=== PATIENT | female | born 1945 | race Caucasian/White ===

== ENCOUNTER 2017-01-22 09:06 | Day surgery (SDC) | payer BC, MEDICARE, OTHER ==
--- NOTE | 2017-01-06 11:11 | PAT Medication Instructions ---
Service Date Jan 06, 2017. Current Home Medication List Acetaminophen (Tylenol Arthritis Ext Rel), 650 MG PO PRN Aspirin (Aspirin Ec), 81 MG PO QPM Atorvastatin (Lipitor), 40 MG PO HS Bupropion (Wellbutrin-Xl), 300 MG PO QAM Calcium (Caltrate), 600 MG PO QAM Celecoxib (CeleBREX), 200 MG PO QPM Folic Acid (Folvite), 1 MG PO QAM Lisinopril (Zestril), 20 MG PO QAM Methotrexate (Methotrexate), 12.5 MG PO THURSDAY Pantoprazole (Protonix), 40 MG PO QAM Pregabalin (Lyrica), 75 MG PO QPM Sodium Fluoride (Dental) (Prevident [address]), 1 DOSE TOP QAM [Topical Cream], 1 DOSE TOP BID Medication Instructions For Your Scheduled Surgery - Check with surgeon/batch and furnace manager for instructions: Aspirin (Aspirin Ec), 81 MG PO QPM - Check with surgeon for instructions: Celecoxib (CeleBREX), 200 MG PO QPM - Check with surgeon/salt washer harvesting station for instructions: Methotrexate (Methotrexate), 12.5 MG PO THURSDAY - Hold the following medications 24 hours prior to surgery: [Topical Cream], 1 DOSE TOP BID Sodium Fluoride (Dental) (Prevident [address]), 1 DOSE TOP QAM - Hold the following medications the morning of surgery: Lisinopril (Zestril), 20 MG PO QAM Folic Acid (Folvite), 1 MG PO QAM Calcium (Caltrate), 600 MG PO QAM - Take the following medications the morning of surgery with a sip of water: Pantoprazole (Protonix), 40 MG PO QAM Bupropion (Wellbutrin-Xl), 300 MG PO QAM Acetaminophen (Tylenol Arthritis Ext Rel), 650 MG PO PRN (if needed) - Take the following medications as scheduled the night before surgery: Pregabalin (Lyrica), 75 MG PO QPM Atorvastatin (Lipitor), 40 MG PO HS Acetaminophen (Tylenol Arthritis Ext Rel), 650 MG PO PRN (if needed) If you have any questions please call us at [phone] or [phone] or [phone]
--- NOTE | 2017-01-06 11:46 | DIAGNOSTIC IMAGING REPORT ---
CERVICAL SPINE 2 OR 3 VIEWS CLINICAL HISTORY: 71 years-old Female presenting with PREOP, RHEUMATOID ARTHRITIS. TECHNIQUE: Lateral views of the cervical spine in neutral, flexion, and extension positioning were obtained. COMPARISON: None. FINDINGS: In neutral position, straightening of normal cervical lordosis noted. In addition, 6 mm of grade 2 anterolisthesis of C4 on C5. Extensive multilevel degenerative changes noted most prominently at C5-6 and C6-7. Normal predental interval. No prevertebral soft tissue swelling. On extension view, slight decrease in anterolisthesis of C4 on C5 without additional changes. No subluxation of the atlantoaxial articulation. On flexion, 6 mm of anterolisthesis of C4 on C5 noted. Again, no subluxation of the atlantoaxial articulation. Apparent obliquely oriented radiolucency across the C5 vertebral body is indeterminate and persists on all positions, possibly superimposed structures. IMPRESSION: 6 mm of grade 2 anterolisthesis of C4 on C5 without significant change on flexion and extension positioning. No subluxation of the atlantoaxial articulation. Apparent obliquely oriented radiolucency across the C5 vertebral body is indeterminate. This raises concern for a fracture, although without a given history of trauma, this diagnosis is doubtful. This may represent overlapping structures. If there is clinical concern, further evaluation with noncontrast CT of the cervical spine could be obtained. Electronically signed by: Freedom Agarwal M.D. 01/06/2017 11:44 AM Dictated Date/Time: 01/06/2017 11:40 AM
[2017-01-06 12:28] LABS: BASO % 0.1 %; BASO ABS # 0.01 K/uL (0-0.2); COMPLETE YES; EOS % 1.7 %; HEMATOCRIT 38.5 % (37-47); IG% 0.3 %; LYMPH % 33.9 %; LYMPH ABS # 2.36 K/uL (1.2-3.4); MEAN CELL VOLUME 91.2 fL (80-100); MEAN CORPUSCULAR HEMOGLOBIN 29.1 pg (25-34); MEAN CORPUSCULAR HGB CONC 31.9 g/dl (32-36); MEAN PLATELET VOLUME 10.4 fL (7.4-10.4); MONO % 9.9 %; NEUT % 54.1 %; PLATELET COUNT 284 K/uL (130-400); RED BLOOD COUNT 4.22 M/uL (4.2-5.4); WHITE BLOOD COUNT 6.97 K/uL (4.8-10.8)
[2017-01-06 12:39] LABS: BUN/CREATININE RATIO 25.2 (10-20); CALCIUM 9.4 mg/dl (8.5-10.1); CREATININE 0.63 mg/dl (0.60-1.20); POTASSIUM 4.8 mmol/L (3.5-5.1)
[2017-01-06 12:41] LABS: PARTIAL THROMBOPLASTIN RATIO 1.1; PROTHROMBIN TIME (PATIENT) 10.2 SECONDS (9.0-12.0)
--- NOTE | 2017-01-21 19:00 | HISTORY & PHYSICAL EXAMINATION ---
DATE OF ADMISSION: 01/22/2017 CHIEF COMPLAINT: Chronic right shoulder pain. HISTORY OF PRESENT ILLNESS: This is a 71-year-old female patient of Dr. Vanegas'mynor complaining of chronic right shoulder pain, longstanding, now progressively getting worse. The patient has failed conservative treatment, including a past rotator cuff repair which was failed. She now wishes to proceed with a right shoulder arthroscopic revision, rotator cuff repair with open Conexa grafting. PAST MEDICAL HISTORY: Hypertension, hypercholesterolemia, rheumatoid arthritis, osteoarthritis, acid reflux, hepatitis A, Glasgow's esophagitis. SOCIAL HISTORY: Nonsmoker, nondrinker. PAST SURGICAL HISTORY: Please see admission paperwork for that. REVIEW OF SYSTEMS: The patient complains of chronic right shoulder pain. Otherwise, denies any shortness of breath, chest pain, nausea, vomiting or any other joint complaints. FAMILY HISTORY: Noncontributory. MEDICATIONS: Include, Tylenol as needed, aspirin 81 mg daily, Lipitor 40 mg daily, Wellbutrin 300 mg daily, calcium 600 mg daily, Celebrex 200 mg daily, folic acid 1 mg daily, lisinopril 20 mg daily, methotrexate 12.5 mg p.o. Thursday, Protonix 40 mg daily, Lyrica 75 mg in the morning, sodium fluoride in the morning. ALLERGIES: Will be provided on admission, unknown right now. PHYSICAL EXAMINATION: GENERAL: Well-developed, well-nourished 71-year-old female, in no acute distress. She is alert and oriented x3 and pleasant. HEENT: Normocephalic, atraumatic. Extraocular motions are intact. Pupils are equal and reactive to light. HEART: Regular rate and rhythm, no murmurs appreciated. LUNGS: Clear. ABDOMEN: Soft, nontender, bowel sounds present. EXTREMITIES: Right shoulder reveals limited range of motion with 3/5 strength globally. She has pain with range of motion as well as crepitation. She has clicking and catching with passive range of motion. DIAGNOSES: Right shoulder failed rotator cuff repair. She has a history of hypertension, hypercholesterolemia, rheumatoid arthritis, osteoarthritis, acid reflux, hepatitis A, Glasgow esophagitis. PLAN: The patient was advised of her diagnosis. Indications, risks, benefits, and postop course have all been reviewed. The patient wishes to proceed with a right shoulder arthroscopic revision, rotator cuff repair with open Conexa grafting. Necessary consent forms, preoperative testing and clearances will be obtained.
[~2017-01-22] VITALS: Ht 160 cm; Wt 78.4 kg
[~2017-01-22 09:06] MED LIST: ACET1TAB84 PO; ASPI81TA28 PO; ATOR-24 PO; BUPRTAB51 PO; CALCTAB5 PO; CEFAZOLIN 1000MG/55 ML D5W IV SCH; CLB/200 PO; FOLI1TAB7 PO; LISI-725 PO; METH2.5T PO; PANT1TAB48 PO; PREG1CAP28 PO; ROPIVACAINE 0.5% 5 MG/ML 30 ML VIAL ONE; SODI1PST TOP; TOPICAL CREAM TOP
[2017-01-22 10:30] VITALS: BP 149/85; PULSE 69; TEMP 36.1; O2SAT 98; Ht 160 cm; Wt 78.4 kg
--- NOTE | 2017-01-22 10:35 | History & Physical Bridge Note ---
H&P Re-Evaluation Bridge Note: I have examined the patient, reviewed the History & Physical and in the interval since the performance of the History & Physical I have noted the following changes of clinical significance: connexa graft not available so human dermal skin graft would possibly be used instead.discussed with patient and consented today.
[2017-01-22] MEDS ORDERED: MIDAZOLAM HCL 1 MG/ML 2ML VIAL ONE (12:55)
[2017-01-22] MEDS ORDERED: NEOSTIGMINE METHYLSULFATE 5 MG/5 ML SYR ONE (12:56)
[2017-01-22] MEDS ORDERED: ONDANSETRON INJ 2 MG/ML 2 ML VIAL ONE (12:56)
[2017-01-22] MEDS ORDERED: GLYCOPYRROLATE INJ 0.2 MG/ML VIAL ONE (12:56)
[2017-01-22] MEDS ORDERED: DEXAMETHASONE SOD INJ 4 MG/ML VIAL ONE (12:56)
[2017-01-22] MEDS ORDERED: FENTANYL CITRATE INJ 50 MCG/1 ML 2 ML VIAL ONE (12:56)
[2017-01-22] MEDS ORDERED: ROCURONIUM BROMIDE 10 MG/ML 5 ML VIAL IV ONE (12:56)
[2017-01-22] MEDS ORDERED: PROPOFOL IV EMULSION 10 MG/ML 20 ML VIAL IV ONE (12:56)
[2017-01-22] MEDS ORDERED: LIDOCAINE HCL 2% 2 ML VIAL (20MG/ML) ONE (12:56)
[2017-01-22] MEDS ORDERED: ATROPINE SULFATE 0.1 MG/ML 5ML SYR IV PRN (13:15)
[2017-01-22] MEDS ORDERED: PHENYLEPHRINE 100MCG/ML 5ML SYR IV PRN (13:15)
[2017-01-22] MEDS ORDERED: EpHEDrine SULFATE INJ 50 MG/ML AMP IV PRN (13:15)
[2017-01-22] MEDS ORDERED: HYDROmorphone INJ 2 MG/ML SYR/VIAL IV PRN (13:15)
[2017-01-22] MEDS ORDERED: ONDANSETRON INJ 2 MG/ML 2 ML VIAL IV PRN ×2 (13:15→16:45)
[2017-01-22] MEDS ORDERED: EpINEphrine HCL INJ 1 MG/ML 5ML SYRINGE ONE (13:38)
[2017-01-22] MEDS ORDERED: RXC5 PO (16:32)
--- NOTE | 2017-01-22 16:33 | Discharge Instructions ---
Discharge Instructions Date of Service Jan 22, 2017. Visit Reason for Visit: Right Shoulder Chronic Rotator Cuff Tear Discharge Discharge Diagnosis / Problem: sp ARTHROSCOPIC ROTATOR CUFF REPAIR Discharge Goals Goal(s): Decrease discomfort, Improve function, Increase independence Activity Recommendations Activity Limitations: per Instructions/Follow-up section Anesthesia . Post Anesthesia Instructions: If you have had General Anesthesia or IV Sedation: * Do not drive today. * Resume driving when surgeon permits. * Do not make important decisions or sign legal documents today. * Call surgeon for: 1. Temperature elevations greater than 101 degrees F. 2. Uncontrollable pain. 3. Excessive bleeding. 4. Persistent nausea and vomiting. 5. Medication intolerance (nausea, vomiting or rash). * For nausea and vomiting use only clear liquids such as: tea, soda, bouillon until nausea subsides, then gradually increase diet as tolerated. * If you have any concerns or questions, call your surgeon's office. If physician is unavailable and it is an emergency, call 911 or go to the nearest emergency room. . Instructions / Follow-Up Instructions / Follow-Up U DISCHARGE INSTRUCTIONS: ROTATOR CUFF REPAIR SELF CARE INSTRUCTIONS A. You are permitted to loosen your sling/immobilizer to move your elbow, wrist , and hand to prevent stiffness. You should use your well arm (good arm) to assist the operated extremity when trying to raise the arm away from the body, hygiene purposes. Do NOT actively try to use/engage your shoulder muscles in operative arm at this time. You should NOT do overhead activity, lifting, or attempt to reach behind your back. B. You may/may not be instructed to start Physical Therapy upon discharge depending upon the size and difficulty of the repair. You will be provided a prescription for therapy with specific restrictions, if needed, at time of discharge. C. At 48 hours post-operatively, you may change your dressing. (Leave white steri-strips intact if present). Use band-aids and change daily. You are allowed to shower at this time and get the incision area wet, but DO NOT soak or submerge incision area in water. (No baths, swimming pools, hot tubs) D. Do NOT apply soap or any ointment/lotions directly over incision. E. You may use ice as needed to operative shoulder SPECIAL CARE INSTRUCTIONS: VERY IMPORTANT TO READ AND REVIEW A. There are a few signs you need to watch for after you are home. Call [facility] at [phone] if you experience any of the following: a. Increased severe shoulder pain. Some pain is expected especially when you exercise b. Increased swelling in your shoulder or arm; pain or swelling in either upper extremity. (Note: swelling and stiffness is normal and expected for several weeks post op, depending on type of shoulder surgery you had). c. Any fluid or drainage from the incision; redness of the incision. d. Shortness of breath or chest pain. B. Please call [facility] at [phone] if you have any questions or concerns about your operation or recovery. C. Call your physician if: a. Temperature is greater than 101 degrees (F). b. Pain is not relieved by prescribed pain medications. c. Increase drainage or redness from incision. d. Unanswered questions or concerns. D. Pain Medication: a. You will be prescribed pain medication upon discharge that should last till your first post-operative appointment. b. If you experience nausea and/or skin rash, discontinue this medication and contact our office for an alternative medication. c. Caution- narcotic pain medication can cause constipation. FOLLOW UP VISIT: Please call [facility] at [phone] to schedule a follow up appointment 10-14 days from your surgery date. Diet Recommendations Recommended Home Diet: no limitations Procedures Procedures Performed: Right shoulder arthroscopy and rotator cuff repair Pending Studies Studies pending at discharge: no Medical Emergencies . Who to Call and When: Medical Emergencies: If at any time you feel your situation is an emergency, please call 911 immediately. . Non-Emergent Contact Non-Emergency issues call your: Surgeon . . "Provider Documentation" section prepared by Nidhi Rivera. .
[2017-01-22] MEDS ORDERED: MoRPHine SULFATE 2 MG/ML CARP IV PRN (16:45)
[2017-01-22] MEDS ORDERED: OXYCODONE HCL IR 5 MG TAB (IMMEDIATE RELEASE) PO PRN ×2 (16:45)
[2017-01-22] MEDS ORDERED: LABETALOL HCL IV 5 MG/ML 20ML IV ONE (17:01)
--- NOTE | 2017-01-22 17:16 | [facility] Post Operative Brief Note ---
Immediate Operative Summary Operative Date Jan 22, 2017. Pre-Operative Diagnosis Right shoulder failed rotator cuff repair Post-Operative Diagnosis Same as preoperative diagnosis,rotator cuff tendinopathy, biceps rupture ,synovitis ,djd glenohumeral Procedure(s) Performed Right Shoulder Arthroscopy and Rotator Cuff Repair; revision decompression and extensive debridement. Surgeon Dr. Mango Vanegas Hair And Makeup Designer Surgeon(s) Nidhi Rivera PA-C Estimated Blood Loss 10ML Findings as above Specimens No pathology specimens per surgeon Anesthesia general and regional Complication(s) None Disposition Recovery Room / PACU
--- NOTE | 2017-01-22 17:32 | Anesthesiology Progress Note ---
Anesthesia Post Op Note Date & Time Jan 22, 2017 at 17:32 Vital Signs Pain Intensity: 0 Vital Signs Past 12 Hours Date Time Temp Pulse Resp B/P (MAP) Pulse Ox O2 Delivery O2 Flow Rate FiO2 01/22/17 17:30 58 15 160/83 98 Room Air 01/22/17 17:20 57 18 147/95 97 Room Air 01/22/17 17:10 59 17 150/88 100 Oxymask 10 01/22/17 17:00 57 16 144/85 100 Oxymask 10 01/22/17 16:54 36.1 59 16 137/89 100 Oxymask 10 01/22/17 10:30 36.1 69 16 149/85 (106) 98 Room Air Notes Mental Status: alert / awake / arousable, participated in evaluation Pt Amnestic to Procedure: Yes Nausea / Vomiting: adequately controlled Pain: adequately controlled Airway Patency, RR, SpO2: stable & adequate BP & HR: stable & adequate Hydration State: stable & adequate Anesthetic Complications: no major complications apparent
[2017-01-22 17:40] VITALS: BP 169/76; PULSE 64; TEMP 36.4; O2SAT 98
[2017-01-22 18:10] VITALS: BP 159/87; PULSE 65; O2SAT 96
[2017-01-22 18:50] VITALS: BP 171/93; PULSE 68; TEMP 36.5; O2SAT 96
--- NOTE | 2017-01-22 22:06 | OPERATIVE REPORT ---
DATE OF OPERATION: 01/22/2017 INDICATION FOR THE PROCEDURE: The patient is a 71-year-old female with chronic right shoulder pain. She did have an injury which required surgical treatment of her right knee. Crutch wear was aggravating her shoulder. Possibly injured her shoulder during that time. She has had chronic shoulder pain and an MRI was ordered demonstrating that she has a full thickness rotator cuff tear, but not much retraction. She has anchors from previous repair. I did review her old operative note which in 2000, I performed an open rotator cuff repair, acromioplasty, distal clavicle excision, SLAP repair at that time. PREOPERATIVE DIAGNOSES: Chronic rotator cuff tear, failed rotator cuff repair, possible posttraumatic. POSTOPERATIVE DIAGNOSIS: Full thickness rotator cuff tear, supraspinatus and infraspinatus with synovitis, glenohumeral joint degenerative arthritis. Long head biceps rupture. Degeneration of glenoid labrum. Chronic subacromial bursitis. Recurrent impingement with bone spurs, lateral acromion. PROCEDURE: Right shoulder arthroscopic revision rotator cuff repair with revision decompression with limited acromioplasty and extensive debridement. SURGEON: Dr. Vanegas. BUILDING SERVICES SUPERVISOR: Nidhi Rivera PA-C. ANESTHESIA: Regional block and general. OPERATIVE PROCEDURE: The patient was taken to the operating room and anesthetized with regional block and general anesthetic. She was positioned on a [facility] shoulder table in the 70 degree beach chair position. Her right shoulder was examined under anesthesia. She had a marked subacromial crepitation, but saw a good range of motion. She had an old saber scar from previous surgery. Right shoulder was sterilely prepped and draped with ChloraPrep. Arthroscopy was started with a posterior arthroscopy portal in the soft spot, the anterior portal in the rotator interval, and a lateral portal in the subacromial space and a superolateral portals placed mid-anterior and mid-posterior to the lateral acromion for suture anchor placement. Intra-articular findings demonstrated that she had a strip of grade 4 wear of the anterior glenoid adjacent to the degenerative labrum, synovitis. She had significant tendinopathy, partial tearing of the subscapularis, but the subscapularis is still intact. Supraspinatus and infraspinatus were completely torn off the greater tuberosity. The humeral head had area of grade 3 wear and thinning of the superior articular surface of the humeral head underlying the rotator cuff tear. The biceps was ruptured and absent. The remainder of the glenoid and then the anterior area wear was in good condition. The infraspinatus tendon tear was delaminating into superior and inferior leaf. Subacromial space shows chronic thickened bursitis. There was old suture material from prior surgery. The area of the suture anchor placement were identified. The sutures had ruptured with no anchor pullout. There was some recurrent spurring of the lateral acromion process that I thought was causing some impingement still, but the patient in general had a satisfactory decompression. Attention was first taken to the glenohumeral joint and the subscapularis tendon was debrided. The undersurface of the rotator cuff and delaminated infraspinatus tendon was debrided. A partial synovectomy was performed of the inflamed synovial tissue. A superior capsular release and anterior rotator interval capsular release was performed to mobilize the rotator cuff tear. The glenohumeral joint surfaces were debrided. The labrum was debrided. In the subacromial space, thorough debridement of the thickened bursa was debrided. We used a 4.5 resector type blade with suction shaver device and we used a radiofrequency ablator. The undersurface of the acromion was ablated. This exposed the spur on the acromion. The acromion spur was planed down to flatter-type acromion shape and some of the anterior recurrent spurs on the acromion and through the AC joint area were planed down to a completely flat undersurface, taking care not to overly thin the acromion as it was already thin from prior acromioplasty. All the thickened bursa was resected and bursal adhesions were released mobilizing the rotator cuff taryn, so we could get a dual row anatomic fixation of both tendons. Some further debridement of the rotator cuff and bursal side was performed, cleaning the undersurface and superior surface of the cuff. The footprint of the supraspinatus and infraspinatus were completely debrided down the bone. The rotator cuff was then repaired with dual row fixation. medial row fixation was a 5.5 Healicoil suture anchor placed under the infraspinatus footprint and 1 under the supraspinatus footprint. These were both loaded with an Ultrabraid tape and Ultrabraid suture. These were all passed with the [employer] suture passer through the rotator cuff, infraspinatus and supraspinatus tendons. I placed a FiberLink into the posterior dog ear and anterior dog ears of the rotator cuff as well. The Ultrabraid suture was also placed between the teres minor and the infraspinatus posteriorly. We used a spinal needle to pass the sutures through the teres minor and a Scorpion suture passer through the infraspinatus. The Ultrabraid sutures were tied side to side and to anchors. We used the [place] sliding locking knot 3 reverse half hitches on alternating posts. Then we placed 5 sutures into each Arthrex BioComposite 5.5 mm SwiveLock. The sutures were tensioned and the SwiveLock was tightened. The screw was tightened fully until it was at the level of bone. Anteriorly, we did pass one extra suture of FiberWire through the rotator cuff as an additional simple suture to flattened out the mid portion of that portion of the anterior supraspinatus repair. This was tied with another Perry sliding locking knot 3 reverse half hitches on alternating posts. All tails of the sutures were cut. The arm was taken through range of motion and there was no impingement. The repair was secured down to the side with no tension on the repair. The portal sites were closed with nylon sutures. Sterile dressings were applied with Xeroform gauze and ABDs and foam tape. The patient was placed into an abduction pillow sling. The patient tolerated the procedure well. Nidhi Rivera PA-C was my assistant bookkeeper and she assisted in arm positioning, arm rotation, suture management during the procedure. She assisted in postoperative care of the patient. I attest to the content of the Intraoperative Record and any orders documented therein. Any exceptions are noted below. LILLY
== END 2017-01-22 19:00 | disposition home or self-care (01) ==
LOC: C.ACU 09:06
PROVIDERS: ATTEND Orthopaedic Surgery Sports Medicine
DX: M75.121 Complete rotator cuff tear or rupture of right shoulder, not specified as traumatic (principal); M25.811 Other specified joint disorders, right shoulder; I10 Essential (primary) hypertension; E78.5 Hyperlipidemia, unspecified; M06.9 Rheumatoid arthritis, unspecified; M19.90 Unspecified osteoarthritis, unspecified site; K21.9 Gastro-esophageal reflux disease without esophagitis; Z79.82 Long term (current) use of aspirin; Z79.899 Other long term (current) drug therapy

== ENCOUNTER 2017-09-02 09:21 | Inpatient (IN) | payer BC, OTHER ==
--- NOTE | 2017-08-04 11:54 | PAT Medication Instructions ---
Service Date Aug 04, 2017. Current Home Medication List Acetaminophen (Tylenol), 1,000 MG PO PRN Aspirin (Aspirin Ec), 81 MG PO QPM Atorvastatin (Lipitor), 40 MG PO HS Bupropion (Wellbutrin-Xl), 300 MG PO QAM Calcium Carbonate-Vitamin D (Calcium + D), 1 TAB PO QAM Celecoxib (CeleBREX), 200 MG PO QPM Fish Oil (Belen-3), 1 CAP PO QAM Lisinopril (Zestril), 20 MG PO QAM Pantoprazole (Protonix), 40 MG PO QAM Pregabalin (Lyrica), 75 MG PO QPM Sodium Fluoride (Dental) (Prevident [address]), 1 DOSE TOP QAM [Topical Cream], 1 DOSE TOP BID [Zija], 1 TAB PO QAM Medication Instructions For Your Scheduled Surgery -Contact your surgeon for instructions for: Celecoxib (CeleBREX), 200 MG PO QPM - Hold the following medications 2 weeks prior to surgery: Fish Oil (Belen-3), 1 CAP PO QAM [Zija], 1 TAB PO QAM - Hold the following medications 24 hours prior to surgery: [Topical Cream], 1 DOSE TOP BID - Hold the following medications the morning of surgery: Calcium Carbonate-Vitamin D (Calcium + D), 1 TAB PO QAM Lisinopril (Zestril), 20 MG PO QAM - Take the following medications the morning of surgery with a sip of water: Acetaminophen (Tylenol), 1,000 MG PO PRN (if needed, can be taken up to four hours before surgery) Bupropion (Wellbutrin-Xl), 300 MG PO QAM Pantoprazole (Protonix), 40 MG PO QAM Sodium Fluoride (Dental) (Prevident [address]), 1 DOSE TOP QAM - Take the following medications as scheduled the night before surgery: Acetaminophen (Tylenol), 1,000 MG PO PRN (if needed) Aspirin (Aspirin Ec), 81 MG PO QPM Atorvastatin (Lipitor), 40 MG PO HS Pregabalin (Lyrica), 75 MG PO QPM If you have any questions please call us at [phone] or [phone] or [phone]
[2017-08-04 14:44] LABS: BASO % 0.2 %; BASO ABS # 0.02 K/uL (0-0.2); EOS % 1.7 %; EOS ABS # 0.14 K/uL (0-0.5); IG# 0.02 K/uL (0.00-0.02); LYMPH % 35.2 %; LYMPH ABS # 2.89 K/uL (1.2-3.4); MEAN CELL VOLUME 89.9 fL (80-100); MEAN CORPUSCULAR HGB CONC 33.3 g/dl (32-36); MEAN PLATELET VOLUME 10.6 fL (7.4-10.4); MONO % 8.9 %; MONO ABS # 0.73 K/uL (0.11-0.59); NEUT % 53.8 %; NEUT ABS # 4.41 K/uL (1.4-6.5); PLATELET COUNT 302 K/uL (130-400); RED CELL DISTRIBUTION WIDTH CV 12.9 % (11.5-14.5); RED CELL DISTRIBUTION WIDTH SD 42.4 fL (36.4-46.3); WHITE BLOOD COUNT 8.21 K/uL (4.8-10.8)
[2017-08-04 14:57] LABS: PTT PATIENT 26.5 SECONDS (21.0-31.0)
[2017-08-04 16:03] LABS: CALCIUM 9.5 mg/dl (8.5-10.1); CREATININE 0.7 mg/dl (0.60-1.20); POTASSIUM 4.5 mmol/L (3.5-5.1)
[2017-08-05 06:31] LABS: HEMOGLOBIN A1C 5.5 % (4.5-5.6)
--- NOTE | 2017-09-01 17:05 | HISTORY & PHYSICAL EXAMINATION ---
DATE OF ADMISSION: 09/02/2017 CHIEF COMPLAINT: Chronic right shoulder pain and weakness. HISTORY OF PRESENT ILLNESS: This is a 71-year-old female patient of Dr. Vanegas'mynor complaining of chronic rotator cuff tendinopathy. Patient did have a rotator cuff repair in January of 2017. Repair has had failed. She subsequently then failed injections and physical therapy and now wishes to proceed with a right reversed total shoulder arthroplasty. 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 She has had 2 heart ablations due to atrial fibrillation, rheumatoid arthritis, osteoarthritis, hepatitis A. SOCIAL HISTORY: Nonsmoker, nondrinker. SURGICAL HISTORY: Bilateral knee replacements, right knee revision, knee replacement, rotator cuff surgeries, appendectomy, left foot surgery and a tubal ligation. REVIEW OF SYSTEMS: The patient complains of chronic right shoulder pain and weakness. Otherwise, denies any shortness of breath, chest pain, nausea, vomiting or joint complaints. FAMILY HISTORY: Noncontributory. MEDICATIONS: 1. Pantoprazole 40 mg daily. 2. Bupropion 300 mg daily. 3. Atorvastatin 40 mg daily. 4. Meloxicam cocktail cream as needed. 5. Lyrica 75 mg daily. 6. Lisinopril 20 mg daily. 7. Celebrex 200 mg daily. 8. PreviDent 5000 Booster Plus in the morning. 9. Calcium 600 plus D every day. 10. Aspirin mg daily. 11. Fish oil 1000 mg plus omega 3, 300 mg daily. ALLERGIES: INCLUDE ADVICOR, BENICAR AND TRICOR ALL CAUSING JOINT PAIN. PHYSICAL EXAMINATION: GENERAL: Well-developed, well-nourished 71-year-old female in no acute distress. She is alert and oriented x3 and pleasant. HEENT: Normocephalic, atraumatic. Extraocular muscles are intact. Pupils are equal and reactive to light. HEART: Regular rate and rhythm, no murmurs. LUNGS: Clear. ABDOMEN: Soft and nontender. Bowel sounds are present. EXTREMITIES: Right shoulder reveals active range of motion to 170. She has full passive range of motion. She has 4/5 strength with pain. She has crepitation with passive range of motion. NEUROLOGIC: Neurovascularly, she is intact in her right upper extremity. DIAGNOSES: Chronic right rotator cuff arthropathy with failed rotator cuff repair in the past. She also has a history of hypertension, hypercholesterolemia, neuropathy in her extremities, rheumatoid arthritis, osteoarthritis, hepatitis A. PLAN: Patient was advised of her diagnosis. Indications, risks, benefits, postop course have all been reviewed. Patient wished to proceed with a right reversed total shoulder arthroplasty. Necessary consent forms, preoperative testing and clearances will be obtained.
[~2017-09-02] VITALS: Ht 160 cm; Wt 76.5 kg
[~2017-09-02 09:21] MED LIST changes: +ACET-1256 PO; -ACET1TAB84 PO; +ACETAMINOPHEN 500 MG TAB PO SCH; +CALC600T9 PO; -CALCTAB5 PO; -CEFAZOLIN 1000MG/55 ML D5W IV SCH; +CEFAZOLIN 2000MG IV PUSH 15 ML IV SCH; +CeleBREX 200 MG CAP PO SCH; +DEXAMETHASONE 4 MG TAB PO SCH; +FAMOTIDINE 20 MG TAB PO SCH; -FOLI1TAB7 PO; +GABAPENTIN 300 MG CAP PO SCH; +LACTATED RINGER'S 1000ML 1,000 ML IV SCH; -METH2.5T PO; +METOCLOPRAMIDE HCL 10 MG TAB PO SCH; +OMEG10007 PO; +PANT1TAB3 PO; -PANT1TAB48 PO; +ZIJA PO
[2017-09-02] MEDS ORDERED: LSN40 (10:00)
[2017-09-02 10:03] VITALS: BP 166/127; PULSE 69; TEMP 36.8; O2SAT 100; Ht 160 cm; Wt 76.5 kg
[2017-09-02] MEDS ORDERED: FENTANYL CITRATE INJ 50 MCG/1 ML 2 ML VIAL ONE (10:29)
[2017-09-02] MEDS ORDERED: MIDAZOLAM HCL 1 MG/ML 2ML VIAL ONE (10:29)
[2017-09-02] MEDS ORDERED: LIDOCAINE HCL 2% 2 ML VIAL (20MG/ML) ONE (10:29)
[2017-09-02] MEDS ORDERED: PROPOFOL IV EMULSION 10 MG/ML 20 ML VIAL IV ONE (10:29)
[2017-09-02] MEDS ORDERED: ROCURONIUM BROMIDE 10 MG/ML 5 ML VIAL IV ONE (10:29)
--- NOTE | 2017-09-02 10:47 | History & Physical Bridge Note ---
H&P Re-Evaluation Bridge Note: I have examined the patient, reviewed the History & Physical and in the interval since the performance of the History & Physical I have noted the following changes of clinical significance: No changes noted
[2017-09-02] MEDS ORDERED: BACITRACIN 50000 UNIT VIAL ONE (11:24)
[2017-09-02] MEDS ORDERED: HYDROmorphone INJ 0.5 MG/0.5 ML SYR IV PRN (12:30)
[2017-09-02] MEDS ORDERED: ONDANSETRON INJ 2 MG/ML 2 ML VIAL IV PRN ×2 (12:30→15:00)
[2017-09-02] MEDS ORDERED: ATROPINE SULFATE 0.1 MG/ML 5ML SYR IV PRN (12:30)
[2017-09-02] MEDS ORDERED: LABETALOL HCL IV 5 MG/ML 20ML IV PRN (12:30)
[2017-09-02] MEDS ORDERED: ONDANSETRON INJ 2 MG/ML 2 ML VIAL ONE (12:53)
[2017-09-02] MEDS ORDERED: DEXAMETHASONE SOD INJ 4 MG/ML VIAL ONE (12:53)
[2017-09-02] MEDS ORDERED: LARYING-O-JET KIT (LTA) ONE (12:53)
[2017-09-02] MEDS ORDERED: NEOSTIGMINE METHYLSULFATE 5 MG/5 ML SYR ONE (14:20)
[2017-09-02] MEDS ORDERED: GLYCOPYRROLATE INJ 0.2 MG/ML VIAL ONE (14:20)
--- NOTE | 2017-09-02 14:51 | [facility] Post Operative Brief Note ---
Immediate Operative Summary Operative Date Sep 02, 2017. Pre-Operative Diagnosis Chronic right rotator cuff arthropathy with failed rotator cuff repair Post-Operative Diagnosis Chronic right rotator cuff arthropathy with failed rotator cuff repair Procedure(s) Performed Right Reversed Total Shoulder Arthroplasty, Removal of Hardware, Biceps Tendonesis Surgeon Dr. Vanegas Directory Operator Surgeon(s) Vniicio Vaughn PA-C Estimated Blood Loss 100 cc Findings Consistent with Post-Op Diagnosis Specimens A: Right humeral head B: explanted hardware right shoulder Drains 2 hemovac Anesthesia Type General Regional Complication(s) none Disposition Disposition: Recovery Room / PACU
[2017-09-02] MEDS ORDERED: SOD PHOSPHATE/SOD BIPHOSPHATE ENEMA 132 ML BTL PR PRN (15:00)
[2017-09-02] MEDS ORDERED: CEFAZOLIN IV 1,000 MG in DEXTROSE 5% 50ML 50 ML IV SCH (15:00)
[2017-09-02] MEDS ORDERED: BISACODYL 10 MG SUPP PR PRN (15:00)
[2017-09-02] MEDS ORDERED: MAGNESIUM HYDROXIDE SUSP 30 ML UDC PO PRN (15:00)
[2017-09-02] MEDS ORDERED: NALOXONE HCL 0.4 MG/1 ML VIAL/CARP IV PRN (15:00)
[2017-09-02] MEDS ORDERED: MoRPHine SULFATE 2 MG/ML CARP IV PRN (15:00)
[2017-09-02] MEDS ORDERED: METOCLOPRAMIDE HCL INJ 5 MG/ML 2 ML VIAL IV PRN (15:00)
[2017-09-02] MEDS ORDERED: ZOLPIDEM TARTRATE 5 MG TAB PO PRN (15:00)
[2017-09-02] MEDS ORDERED: MoRPHine SULFATE 4 MG/ML 1 ML CARP\\VIAL IV PRN (15:30)
--- NOTE | 2017-09-02 15:48 | DIAGNOSTIC IMAGING REPORT ---
R SHOULDER MIN 2 VIEWS ROUTINE CLINICAL HISTORY: Post shoulder surgery COMPARISON STUDY: None. FINDINGS: 2 views of the right shoulder demonstrate a reverse total shoulder arthroplasty. The hardware appears intact. No fracture or dislocation. Skin benjamin and surgical drains are in place. IMPRESSION: Status post reverse total shoulder arthroplasty. No evidence for hardware complication. Electronically signed by: Vincent Nguyen M.D. 09/02/2017 3:47 PM Dictated Date/Time: 09/02/2017 3:45 PM
--- NOTE | 2017-09-02 15:56 | Anesthesiology Progress Note ---
Anesthesia Post Op Note Date & Time Sep 02, 2017 at 15:56 Vital Signs Pain Intensity: 0 Vital Signs Past 12 Hours Date Time Temp Pulse Resp B/P (MAP) Pulse Ox O2 Delivery O2 Flow Rate FiO2 09/02/17 15:50 36.8 66 16 138/81 98 Nasal Cannula 2 09/02/17 15:40 36.8 66 16 147/81 98 Nasal Cannula 2 09/02/17 15:30 36.8 72 16 141/85 98 Nasal Cannula 2 09/02/17 15:20 72 16 147/91 98 Nasal Cannula 2 09/02/17 15:10 69 16 152/82 98 Oxymask 10 09/02/17 15:03 36.4 77 16 149/95 98 Oxymask 10 09/02/17 10:03 36.8 69 18 166/127 100 Room Air Notes Mental Status: alert / awake / arousable, participated in evaluation Pt Amnestic to Procedure: Yes Nausea / Vomiting: adequately controlled Pain: adequately controlled Airway Patency, RR, SpO2: stable & adequate BP & HR: stable & adequate Hydration State: stable & adequate Anesthetic Complications: no major complications apparent
[2017-09-02 16:10] VITALS: BP 148/88; PULSE 75; TEMP 36.7; O2SAT 99
[2017-09-02 16:34] VITALS: BP 149/89; PULSE 70; O2SAT 98
[2017-09-02] MEDS: D5W AND 1/2NSS + 20MEQ KCL 1,000 ML IV SCH (16:56)
--- NOTE | 2017-09-02 16:56 | [facility] Operative Report ---
Operative Report Operative Date Sep 02, 2017. Pre-Operative Diagnosis Chronic right rotator cuff arthropathy with failed rotator cuff repair Post-Operative Diagnosis Same, chronic biceps tendinopathy Procedure(s) Performed Right reverse total shoulder arthroplasty biceps tenodesis hardware removal Surgeon Dr. Vanegas Machine Operator Transplanter Surgeon(s) Vinicio Vaughn PA-C Estimated Blood Loss 100 cc Findings Chronic rotator cuff tear posterior supraspinatus and infraspinatus with retraction nonrepairable. Biceps tendinopathy in groove. Retained hardware from prior rotator cuff repair with failed rotator cuff repair Specimens A: Right humeral head B: explanted hardware right shoulder Drains 2 hemovac Anesthesia Regional block general Complication(s) None Disposition Recovery Room / PACU Indications 71-year-old female status post several surgeries right shoulder including revision rotator cuff repair. Previous decompression distal clavicle excision. Patient now with chronic rotator cuff arthropathy DJD glenohumeral joint. Description of Procedure The patient was taken to the operating room and anesthetized under regional block and general anesthetic. The patient was positioned on the operating table in a 30 beachchair position with a towel roll under the medial border of the right scapula. The arm was draped free to be able to manipulate the shoulder as needed. The right upper extremity was prepped and draped in usual sterile fashion. Exam demonstrated proximal migration of the humerus bone-on- bone crepitation saber scar plus arthroscopic scars from prior surgery. Good passive range of motion.. An anterior deltopectoral approach was performed. A longitudinal incision was made in the deltopectoral interval. The skin was incised sharply. Subcutaneous flaps were elevated off the fascia. The cephalic vein was dissected out and retracted lateral with the deltoid. The clavipectoral fascia was divided at the lateral margin of the conjoined tendon and extended up to the CA ligament. The following findings were noted there was a massive subacromial bursal fluid collection extending into the rotator cuff tears and surrounding the subscapularis and anterior supraspinatus. There was a scarred biceps tendon that remained in the bicipital groove with small amount of tenosynovitis around it.. The upper centimeter of the pectoralis was released for inferior exposure. The biceps tendon was tenodesed to the pectoralis tendon with #2 FiberWire. The proximal biceps was resected. The subscapularis tendon was taken down off the lesser tuberosity using a subperiosteal dissection. A #1 Vicryl traction suture was placed into the free end of the subscapularis tendon and capsule. The subscapular muscle fibers were split longitudinally at the level of the circumflex vessels. The circumflex vessels were identified and tied off with silk ties and divided laterally. A Kitner elevator was used to free up the inferior fibers of the subscapularis off of the capsule. The axillary nerve was identified with a tug test and protected with a blunt Ramon retractor between the nerve and the capsule. The subscapularis tendon was then taken down off of the lesser tuberosity subperiosteally and subperiosteal dissection was performed along the neck of the humerus as the arm is gradually actually rotated exposing the humeral head. Retractors were readjusted and the inferior osteophytes were all resected using an artist chisel. A Ellis elevator was used to assist in releasing the capsule of the neck of the humerus. The capsule was divided with Navarro scissors down to the glenoid released off the anterior glenoid and the rotator interval was released to meet the capsular release and a 360 release of the subscapularis was accomplished. A Fukuda retractor was placed into the joint retracting the humeral head posterior. Glenoid findings demonstrated patient still articular cartilage on the glenoid and still had a labrum intact. There was a stump of the biceps tendon proximal on the superior labrum.. The labrum and biceps tendon was resected.an anterior-inferior and posterior inferior capsular release were performed with electrocautery and a Ellis elevator on bone with the axillary nerve protected inferiorly by the retractor. Attention was then taken to the humeral preparation. The cutting guide was placed into the humeral head. It was positioned at 20 of retroversion. Oscillating saw was used to resect the humeral head giving the cut above the level of the posterior rotator cuff insertion site. Multiple suture anchors were removed from the head and proximal metaphysis of the humerus. Multiple sutures and tapes were removed as well. All the anchors from the prior surgeries were removed. This did leave some voids in the cancellus bone in the metaphysis greater tuberosity area. The humerus was then prepared for the stem. I used the ascend flex stem from [employer]. The sizing broaches were used followed by trial broaches up to a size 3B long which had the appropriate fit and fill. The appropriate sized cut protector was placed. The humerus was then retracted posterior to the glenoid. The glenoid was sized for a 25 mm baseplate. The guide for the baseplate was positioned in a 10 inferior tilt and the central drill hole was made. The reamer for the 25 mm baseplate was used. The central drill was widened for the peg. The hydroxyapatite-coated 25 mm Tornier Aequalis baseplate was impacted into position. The base plate was transfixed with superior and inferior locking screws and anterior and posterior compression screws with stable fixation. The fan reamer was used for the 36 mm millimeter glenoid sphere. After irrigation the 36 mm glenoid sphere was impacted onto the baseplate and the screw was tightened. Attention was taken back to the humerus. The cut protector was removed and the +0 high offset tray humeral tray trial was assembled to the trial stem rotated appropriately to get bony coverage and then screwed in position. A trial reduction was performed. A +6 mm trial insert demonstrated good stability and no shuck. The trials were removed. 3 drill holes are made into the harder bone in the bicipital groove area and 3 #5 FiberWire sutures were placed transosseously. The canal was irrigated with antibiotic solution with bacitracin. The final component was assembled. The final component was IIIB long stem +0 high offset humeral tray 36+6 mm humeral insert. At this time I bone grafted all the metaphyseal defects and greater tuberosity defects with autograft from the humeral head fragment that was cut off previously. The stem was then was then impacted into the humerus with a tight press-fit. It was reduced to the glenoid sphere. Stability was verified. Subscapularis was repaired with the #5 FiberWire sutures using Ryland-Steven suture technique. Lateral row soft tissue repair was performed with #2 FiberWire [id number] sutures. The pectoralis was repaired with #2 FiberWire [id number] sutures reinforcing the biceps tendon tenodesis. The arm was taken through a range of motion which demonstrated forward elevation 240 external rotation to 70 and abduction and 90 without tension on the repair. The implant was stable through the range of motion tested. The wound was copiously irrigated. 2 Hemovac drains were placed. The deltopectoral interval was closed with figure- of-eight #1 Vicryl sutures. The subcutaneous tissues were closed with 2-0 Vicryl sutures. The skin was closed with benjamin. Sterile dressings were applied and a shoulder immobilizer. Vinicio DOMINGUEZ my physician lab assistant assisted in the procedure for the entire procedure including patient positioning arm positioning prepping and draping soft tissue retraction instrument management suture management and performed the subcutaneous and skin closure and will participate in the postoperative care of the patient. I attest to the content of the Intraoperative Record and any orders documented therein. Any exceptions are noted below.
--- NOTE | 2017-09-02 17:25 | Medical Consult ---
Consultation Date of Consultation: Sep 02, 2017. Attending Physician: Mango Vanegas M.D. Reason for Consultation: Medical co-management History of Present Illness 71 years old female with past medical history of hypertension, AVNRT, atrial fibrillation status post ablation 2, dyslipidemia, patient is only on baby aspirin as she had does have history of recurrent brain hemorrhage and was taking of oral anticoagulation. Patient had right shoulder chronic pain failed rotator cuff, presented to the hospital for an elective surgical procedure. Status post Right Reversed Total Shoulder Arthroplasty, Removal of Hardware, Biceps Tendonesis Social History Smoking Status: Never Smoker Allergies Coded Allergies: Fenofibrate (Verified Adverse Reaction, Unknown, MUSCLE ACHES,HEADACHE, ) Lovastatin (Verified Adverse Reaction, Unknown, MUSCLE ACHES, 09/02/17) Olmesartan (Verified Adverse Reaction, Unknown, NAUSEA,DIZZINESS, 09/02/17) Current Inpatient Medications Current Inpatient Medications Medications (Trade) Dose Ordered Sig/Junito Route Start Time Stop Time Status Last Admin Dose Admin Ondansetron HCl (Zofran Inj) 4 mg ONE PRN IV 09/02/17 12:30 09/02/17 17:30 Atropine Sulfate (Atropine Sulfate 0.1mg/ml Inj) 0.5 mg Q1M PRN IV 09/02/17 12:30 09/02/17 17:30 Hydromorphone HCl (Dilaudid Inj) 0.25 mg Q5M PRN IV 09/02/17 12:30 09/02/17 17:30 Labetalol HCl (Normodyne IV) 5 mg Q5M PRN IV 09/02/17 12:30 09/02/17 17:30 Aspirin (Ecotrin Tab) 81 mg QPM PO 09/02/17 21:00 10/02/17 20:59 Atorvastatin Calcium (Lipitor Tab) 40 mg HS PO 09/02/17 21:00 10/02/17 20:59 Bupropion HCl (Wellbutrin-Xl Tab) 300 mg QAM PO 09/03/17 09:00 10/03/17 08:59 Lisinopril (Zestril Tab) 40 mg DAILY PO 09/03/17 09:00 10/03/17 08:59 Pregabalin (Lyrica Cap) 75 mg QPM PO 09/02/17 21:00 10/02/17 20:59 Calcium/Vitamin D (Caltrate Plus Tab) 1 tab QAM PO 09/03/17 09:00 10/03/17 08:59 Miscellaneous Information (Order Awaiting Action) 1 ea BID N/A 09/02/17 21:00 10/02/17 20:59 Diphenhydramine HCl (Benadryl Cap) 25 mg Q8 PRN PO 09/02/17 15:00 10/02/17 14:59 Zolpidem Tartrate (Ambien Tab) 5 mg HSZ PRN PO 09/02/17 15:00 10/02/17 14:59 Metoclopramide HCl (Reglan Inj) 10 mg Q6H PRN IV 09/02/17 15:00 10/02/17 14:59 Ondansetron HCl (Zofran Inj) 4 mg Q6H PRN IV 09/02/17 15:00 10/02/17 14:59 Pantoprazole Sodium (Protonix Tab) 40 mg QAM PO 09/03/17 09:00 10/03/17 08:59 Potassium Chloride/Dextrose/ Sod Cl 1,000 ml @ 100 mls/hr Q10H IV 09/02/17 17:00 09/03/17 15:00 09/02/17 16:56 100 MLS/HR Oxycodone HCl (Roxicodone Immediate Rel Tab) `1-2 TABS FOR PAIN `1 TAB... Q4H PRN PO 09/02/17 15:00 09/16/17 14:59 Acetaminophen (Tylenol Tab) 1,000 mg Q8 PO 09/02/17 22:00 10/02/17 21:59 Morphine Sulfate (MoRPHine SULFATE INJ) 2 mg Q2H PRN IV 09/02/17 15:00 09/16/17 14:59 Naloxone HCl (Narcan Inj) 0.1 mg Q2M PRN IV 09/02/17 15:00 10/02/17 14:59 Magnesium Hydroxide (Milk Of Magnesia Susp) 30 ml Q6H PRN PO 09/02/17 15:00 10/02/17 14:59 Bisacodyl (Dulcolax Supp) 10 mg DAILY PRN GA 09/02/17 15:00 10/02/17 14:59 Sodium Biphosphate/ Sodium Phosphate (Fleet Enema) 132 ml DAILY PRN GA 09/02/17 15:00 10/02/17 14:59 Multivitamins (Multivitamin Tab) 1 tab DAILY PO 09/03/17 09:00 10/03/17 08:59 Morphine Sulfate (MoRPHine SULFATE INJ) 4 mg Q2H PRN IV 09/02/17 15:30 09/16/17 15:29 Cefazolin Sodium 1000 mg/Syringe 7.5 ml @ 2.5 mls/min Q8H IV 09/02/17 20:00 09/03/17 04:02 Review of Systems Review of system Constitutional: No fever / no chills / no sweats / no weakness / no fatigue Eyes: no blurring of vision / no eye pain / no discharge / no redness ENT: no hearing loss / no epistaxis /no swallowing problems Respiratory: no cough / no wheezing / no SOB / no hemoptysis Cardiovascular: no Chest pain / no lower extremity edema / no palpitation Abdomen: no pain / no nausea / no vomiting / no constipation Musculoskeletal: no joint pain / no muscle pain / no joint swelling Genitourinary: no dysuria / no incontinence / no urinary retention Neurologic: no focal weakness / no numbness/tingling / no ataxia Psychiatric: no depression symptoms / no anxiety / no insomnia Endocrine: no excessive thirst / no excessive urination Hematologic: no abnormal bleeding / no bruising / no LN swelling Skin: No rash / no pallor Physical examination General patient appears to be comfortable, not in acute distress HEENT: Atraumatic , normocephalic /no jaundice /no pallor /anicteric /no dry mucous membrane /normal external ear inspection Neck: Supple /no swelling /central trach Heart: S1/S2 normal/regular rate and rhythm/no gallop /no rub /no murmur Lungs: Clear to auscultation bilaterally/normal chest with expansion/no rhonchi/ no rales/no wheezing/no use of accessory muscles of respiration Abdomen: Soft/nontender/no guarding/no rebound/no organomegaly/no pulsatile mass Musculoskeletal: No swelling/no edema/no tenderness/normal range of motion, right shoulder is wrapped, can move her fingers and have sensation intact under her right hand Neuro exam: Awake alert oriented 3/cranial nerves II through XII appear to be intact/sensation intact/moves all extremities/no abnormal movements Psychiatric evaluation: No depressed mood/normal affect Skin: No rash on exposed skin area/no erythema Extremity: Normal pulse/no pitting edema/no clubbing or cyanosis Endocrine/lymphatic: No obvious lymphadenopathy /no lymphedema Physical Exam Date Time Temp Pulse Resp B/P (MAP) Pulse Ox O2 Delivery O2 Flow Rate FiO2 09/02/17 16:34 70 149/89 (109) 98 Nasal Cannula 2.0 09/02/17 15:50 36.8 66 16 138/81 98 Nasal Cannula 2 09/02/17 15:40 36.8 66 16 147/81 98 Nasal Cannula 2 09/02/17 15:30 36.8 72 16 141/85 98 Nasal Cannula 2 09/02/17 15:20 72 16 147/91 98 Nasal Cannula 2 09/02/17 15:10 69 16 152/82 98 Oxymask 10 09/02/17 15:03 36.4 77 16 149/95 98 Oxymask 10 09/02/17 10:03 36.8 69 18 166/127 100 Room Air Laboratory Results No recent labs in our system. Labs were ordered for a.m. Assessment & Plan 71 years old female with past medical history of hypertension, AVNRT, atrial fibrillation status post ablation 2, dyslipidemia, patient is only on baby aspirin as she had does have history of recurrent brain hemorrhage and was taking of oral anticoagulation. Presented for elective right Reversed Total Shoulder Arthroplasty, Removal of Hardware, Biceps Tendonesis Assessment: severe osteoarthritis that failed outpatient conservative measures. Patient presented to the hospital for an elective orthopedic procedure Plan Status post Right Reversed Total Shoulder Arthroplasty, Removal of Hardware, Biceps Tendonesis , procedure went uneventful full Patient tolerated procedure well with minimal blood loss Appears to be stable Continue outpatient medications Follow-up labs Ensure adequate oral/parenteral intake Pain management Physical therapy initiation as per primary orthopedic team DVT prophylaxis as per the choice of primary orthopedic team
[2017-09-02 18:23] VITALS: BP 128/83; PULSE 78; O2SAT 98
[2017-09-02 19:28] VITALS: BP 120/78; PULSE 79; TEMP 36.7; O2SAT 94
[2017-09-02] MEDS: [UNRECOGNIZED DRUG - OTHER] SCH (21:00)
[2017-09-02] MEDS: CEFAZOLIN IV 1,000 MG in SYRINGE 0 ML IV SCH (21:22)
[2017-09-02] MEDS: ACETAMINOPHEN 500 MG TAB PO SCH (21:23)
[2017-09-02] MEDS: ASPIRIN 81 MG ECTAB PO SCH (21:23)
[2017-09-02] MEDS: ATORVASTATIN 40 MG TAB PO SCH (21:23)
[2017-09-02] MEDS: PREGABALIN 75 MG CAP PO SCH (21:23)
[2017-09-02 23:36] VITALS: BP 104/58; PULSE 68; TEMP 36.8; O2SAT 96
[2017-09-03] MEDS: D5W AND 1/2NSS + 20MEQ KCL 1,000 ML IV SCH ×2 (02:38→12:31)
[2017-09-03 03:05] VITALS: BP 104/63; PULSE 77; TEMP 36.7; O2SAT 93
[2017-09-03] MEDS: CEFAZOLIN IV 1,000 MG in SYRINGE 0 ML IV SCH (04:26)
[2017-09-03] MEDS: ACETAMINOPHEN 500 MG TAB PO SCH ×3 (05:44→21:46)
[2017-09-03 07:01] VITALS: BP 115/74; PULSE 69; TEMP 36.6; O2SAT 91
[2017-09-03 07:19] LABS: EOS % 0.1 %; EOS ABS # 0.01 K/uL (0-0.5); HEMATOCRIT 29.4 % (37-47); HEMOGLOBIN 9.7 g/dL (12.0-16.0); IG# 0.03 K/uL (0.00-0.02); LYMPH % 14.9 %; LYMPH ABS # 1.75 K/uL (1.2-3.4); MEAN CELL VOLUME 88.3 fL (80-100); MEAN CORPUSCULAR HEMOGLOBIN 29.1 pg (25-34); MONO % 11.8 %; MONO ABS # 1.39 K/uL (0.11-0.59); NEUT % 72.9 %; PLATELET COUNT 243 K/uL (130-400); RED CELL DISTRIBUTION WIDTH CV 12.9 % (11.5-14.5); WHITE BLOOD COUNT 11.78 K/uL (4.8-10.8)
[2017-09-03] MEDS: OXYCODONE HCL IR 5 MG TAB (IMMEDIATE RELEASE) PO PRN ×4 (07:24→21:45)
[2017-09-03 07:52] LABS: ALBUMIN 2.9 gm/dl (3.4-5.0); CALCIUM 7.9 mg/dl (8.5-10.1); CREATININE 0.71 mg/dl (0.60-1.20); POTASSIUM 4.2 mmol/L (3.5-5.1)
[2017-09-03] MEDS: [UNRECOGNIZED DRUG - OTHER] SCH ×2 (07:54→21:00)
[2017-09-03 07:55] LABS: TOTAL PROTEIN 5.7 gm/dl (6.4-8.2)
--- NOTE | 2017-09-03 08:09 | Orthopedic Progress Note ---
Orthopedic Progress Note Date of Service Sep 03, 2017. Subjective Post OP Day: 1 Reports: feeling well, pain controlled w PO medications, Denies: complaints, chest pain, SOB, nausea / vomiting, light headedness, calf pain Objective N/V intact, capillary refill less than 2 sec., dressing C/D/I, A&O x3 Sling in tact, fingers mobile. Date Time Temp Pulse Resp B/P (MAP) Pulse Ox O2 Delivery O2 Flow Rate FiO2 09/03/17 07:01 36.6 69 16 115/74 (88) 91 Room Air 09/03/17 03:05 36.7 77 16 104/63 (77) 93 Room Air 09/03/17 00:15 Room Air 09/02/17 23:36 36.8 68 16 104/58 (73) 96 Room Air 09/02/17 19:28 36.7 79 16 120/78 (92) 94 Room Air 09/02/17 18:23 78 18 128/83 (98) 98 Nasal Cannula 2.0 09/02/17 16:34 70 149/89 (109) 98 Nasal Cannula 2.0 09/02/17 16:10 Nasal Cannula 2.0 09/02/17 16:10 36.7 75 18 148/88 (108) 99 Nasal Cannula 3.0 09/02/17 16:10 Nasal Cannula 2.0 09/02/17 15:50 36.8 66 16 138/81 98 Nasal Cannula 2 09/02/17 15:40 36.8 66 16 147/81 98 Nasal Cannula 2 09/02/17 15:30 36.8 72 16 141/85 98 Nasal Cannula 2 09/02/17 15:20 72 16 147/91 98 Nasal Cannula 2 09/02/17 15:10 69 16 152/82 98 Oxymask 10 09/02/17 15:03 36.4 77 16 149/95 98 Oxymask 10 09/02/17 10:03 36.8 69 18 166/127 100 Room Air Laboratory Results 24 Hours: Test 09/03/17 06:53 White Blood Count 11.78 K/uL Red Blood Count 3.33 M/uL Hemoglobin 9.7 g/dL Hematocrit 29.4 % Mean Corpuscular Volume 88.3 fL Mean Corpuscular Hemoglobin 29.1 pg Mean Corpuscular Hemoglobin Concent 33.0 g/dl Platelet Count 243 K/uL Mean Platelet Volume 10.0 fL Neutrophils (%) (Auto) 72.9 % Lymphocytes (%) (Auto) 14.9 % Monocytes (%) (Auto) 11.8 % Eosinophils (%) (Auto) 0.1 % Basophils (%) (Auto) 0.0 % Neutrophils # (Auto) 8.60 K/uL Lymphocytes # (Auto) 1.75 K/uL Monocytes # (Auto) 1.39 K/uL Eosinophils # (Auto) 0.01 K/uL Basophils # (Auto) 0.00 K/uL Assessment & Plan Assessment: POD #1, Right Reversed TSA, biceps tenodesis, removal Hardware Plan: PT/ OT DVT proph- ASA D/C planning- Home As per medicine Inhouse Planning Pain Management: Morphine, PO Tylenol, Oxy IR DVT Prophylaxis: TEDs, SCDs, ASA Discharge Planning Discharge Planning: home Pain Management: PO Tylenol, Oxy IR DVT Prophylaxis: ASA
[2017-09-03] MEDS: BuPROPion XL 300 MG TABCR PO SCH (08:37)
[2017-09-03] MEDS: LISINOPRIL 40 MG TAB PO SCH (08:38)
[2017-09-03] MEDS: CALCIUM 600MG + VIT D 400 IU TAB PO SCH (08:38)
[2017-09-03] MEDS: MULTIVITAMIN TAB PO SCH (08:38)
[2017-09-03] MEDS: PANTOprazole SOD 40 MG TAB PO SCH (08:38)
[2017-09-03] MEDS ORDERED: SODIUM FLUORIDE TOP SCH (09:00)
[2017-09-03] MEDS ORDERED: ZIJA PO SCH (09:00)
[2017-09-03] MEDS ORDERED: NURSING VERBAL MED ORDER ONE (09:30)
[2017-09-03] MEDS: KETOROLAC TROMETHAMINE 15 MG/ML VIAL IV. PRN (10:25)
[2017-09-03 11:06] VITALS: BP 115/72; PULSE 70; TEMP 36.8; O2SAT 94
[2017-09-03 15:10] VITALS: BP 122/74; PULSE 78; TEMP 36.7; O2SAT 98
--- NOTE | 2017-09-03 15:42 | Progress Note ---
Subjective Date of Service: Sep 03, 2017. Subjective Pt evaluation today including: conversation w/ patient, physical exam, chart review, lab review, review of studies, review of inpatient medication list Doing well, up and walk, right shoulder pain is well controlled is on sling, no complaint Review of Systems Constitutional: No fever, No chills, No sweats, No weight loss, No weakness, No fatigue, No problem reported Eyes: No worsening of vision, No eye pain, No redness, No discharge, No diplopia ENT: No hearing loss, No unusual epistaxis, No nasal symptoms, No sore throat, No tinnitus, No dental problems, No trouble swallowing Respiratory: No cough, No sputum, No wheezing, No shortness of breath, No dyspnea on exertion, No dyspnea at rest, No hemoptysis Cardiac: No chest pain, No orthopnea, No PND, No edema, No claudication, No palpitations Abdomen: No pain, No nausea, No vomiting, No diarrhea, No constipation Musculoskeletal: + joint pain, No muscle pain, No swelling, No calf pain Female : No dysuria, No urinary frequency, No hematuria, No incontinence, No abnormal vaginal bleeding, No vaginal discharge Neurologic: No memory loss, No paralysis, No weakness, No numbness/tingling, No vertigo, No balance problems Psychiatric: No depression symptoms, No anhedonism, No anxiety, No insomnia, No substance abuse Heme: No abnormal bleeding/bruising, No clotting problems, No swollen lymph nodes, No night sweats Endo: No fatigue, No excessive thirst, No excessive urination Skin: No rash, No itch, No new/changing skin lesions, No color change, No bleeding Objective Vital Signs Date Time Temp Pulse Resp B/P (MAP) Pulse Ox O2 Delivery O2 Flow Rate FiO2 09/03/17 15:10 36.7 78 18 122/74 (90) 98 Room Air 09/03/17 11:06 36.8 70 16 115/72 (86) 94 Room Air 09/03/17 07:50 Room Air 09/03/17 07:01 36.6 69 16 115/74 (88) 91 Room Air 09/03/17 03:05 36.7 77 16 104/63 (77) 93 Room Air 09/03/17 00:15 Room Air 09/02/17 23:36 36.8 68 16 104/58 (73) 96 Room Air 09/02/17 19:28 36.7 79 16 120/78 (92) 94 Room Air 09/02/17 18:23 78 18 128/83 (98) 98 Nasal Cannula 2.0 09/02/17 16:34 70 149/89 (109) 98 Nasal Cannula 2.0 09/02/17 16:10 Nasal Cannula 2.0 09/02/17 16:10 36.7 75 18 148/88 (108) 99 Nasal Cannula 3.0 09/02/17 16:10 Nasal Cannula 2.0 09/02/17 15:50 36.8 66 16 138/81 98 Nasal Cannula 2 09/02/17 15:40 36.8 66 16 147/81 98 Nasal Cannula 2 Physical Exam General Appearance: WD/WN, no apparent distress Eyes: normal inspection, PERRL, EOMI, sclerae normal ENT: normal ENT inspection, hearing grossly normal, pharynx normal Neck: supple, no adenopathy, thyroid normal, no JVD, no carotid bruits, trachea midline Respiratory/Chest: chest non-tender, lungs clear, normal breath sounds, no respiratory distress, no accessory muscle use Cardiovascular: regular rate, rhythm, no edema, no gallop, no JVD, no murmur Abdomen: normal bowel sounds, non tender, soft, no organomegaly, no pulsatile mass Extremities: normal inspection, no pedal edema, no calf tenderness, normal capillary refill, pelvis stable, + pertinent finding (Right shoulder in sling, right capillary refill, colors and radial pulses are normal) 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, no motor/sensory deficits, alert, normal mood/affect, oriented x 3 Skin: normal color, warm/dry, no rash Lymphatic: no adenopathy Laboratory Results Last 24 Hours Test 09/03/17 06:53 White Blood Count 11.78 K/uL Red Blood Count 3.33 M/uL Hemoglobin 9.7 g/dL Hematocrit 29.4 % Mean Corpuscular Volume 88.3 fL Mean Corpuscular Hemoglobin 29.1 pg Mean Corpuscular Hemoglobin Concent 33.0 g/dl Platelet Count 243 K/uL Mean Platelet Volume 10.0 fL Neutrophils (%) (Auto) 72.9 % Lymphocytes (%) (Auto) 14.9 % Monocytes (%) (Auto) 11.8 % Eosinophils (%) (Auto) 0.1 % Basophils (%) (Auto) 0.0 % Neutrophils # (Auto) 8.60 K/uL Lymphocytes # (Auto) 1.75 K/uL Monocytes # (Auto) 1.39 K/uL Eosinophils # (Auto) 0.01 K/uL Basophils # (Auto) 0.00 K/uL RDW Standard Deviation 42.0 fL RDW Coefficient of Variation 12.9 % Immature Granulocyte % (Auto) 0.3 % Immature Granulocyte # (Auto) 0.03 K/uL Sodium Level 139 mmol/L Potassium Level 4.2 mmol/L Chloride Level 109 mmol/L Carbon Dioxide Level 25 mmol/L Anion Gap 5.0 mmol/L Blood Urea Nitrogen 19 mg/dl Creatinine 0.71 mg/dl Est Creatinine Clear Calc Drug Dose 72.2 ml/min Estimated GFR () 100.0 Estimated GFR (Non- 86.3 BUN/Creatinine Ratio 26.2 Random Glucose 111 mg/dl Calcium Level 7.9 mg/dl Magnesium Level 2.0 mg/dl Total Bilirubin 0.4 mg/dl Aspartate Amino Transf (AST/SGOT) 16 U/L Alanine Aminotransferase (ALT/SGPT) 18 U/L Alkaline Phosphatase 53 U/L Total Protein 5.7 gm/dl Albumin 2.9 gm/dl Globulin 2.8 gm/dl Albumin/Globulin Ratio 1.0 Hepatitis C Antibody Screen NEG Assessment and Plan 71 years old female admitted on August 29, 2017 for elective right Reversed Total Shoulder Arthroplasty, severe osteoarthritis that failed outpatient conservative measures. Status post Right Reversed Total Shoulder Arthroplasty, Removal of Hardware, Biceps Tendonesis , procedure went uneventful Postop day 1, Doing well Pain management Physical therapy initiation as per primary orthopedic team DVT prophylaxis as per the choice of primary orthopedic team Past medical history of hypertension, AVNRT, atrial fibrillation status post ablation 2, dyslipidemia, stable continue current care Continued [facility] stay due to: multiple IV medications needed Discharge planning: home
[2017-09-03] MEDS: ATORVASTATIN 40 MG TAB PO SCH (21:46)
[2017-09-03] MEDS: PREGABALIN 75 MG CAP PO SCH (21:46)
[2017-09-03] MEDS: ASPIRIN 81 MG ECTAB PO SCH (21:46)
[2017-09-03 23:45] VITALS: BP 126/60; PULSE 78; TEMP 36.8; O2SAT 95
[2017-09-04] MEDS: KETOROLAC TROMETHAMINE 15 MG/ML VIAL IV. PRN (00:04)
[2017-09-04] MEDS: ACETAMINOPHEN 500 MG TAB PO SCH (05:38)
[2017-09-04 06:09] VITALS: BP 137/80; PULSE 79; TEMP 36.8; O2SAT 93
[2017-09-04 07:09] LABS: HEMATOCRIT 30.8 % (37-47); HEMOGLOBIN 10.2 g/dL (12.0-16.0); MEAN CELL VOLUME 89.5 fL (80-100); MEAN CORPUSCULAR HEMOGLOBIN 29.7 pg (25-34); MEAN CORPUSCULAR HGB CONC 33.1 g/dl (32-36); MEAN PLATELET VOLUME 10.2 fL (7.4-10.4); PLATELET COUNT 257 K/uL (130-400); RED CELL DISTRIBUTION WIDTH CV 13.1 % (11.5-14.5); RED CELL DISTRIBUTION WIDTH SD 42.7 fL (36.4-46.3)
[2017-09-04 07:38] LABS: CREATININE 0.88 mg/dl (0.60-1.20); POTASSIUM 3.7 mmol/L (3.5-5.1)
[2017-09-04] MEDS: [UNRECOGNIZED DRUG - OTHER] SCH (07:49)
--- NOTE | 2017-09-04 07:49 | Orthopedic Progress Note ---
Orthopedic Progress Note Date of Service Sep 04, 2017. Subjective Post OP Day: 2 Reports: feeling well, pain controlled w PO medications, Denies: complaints, chest pain, SOB, nausea / vomiting, light headedness, calf pain Objective N/V intact, capillary refill less than 2 sec., dressing C/D/I, incision C/D/I, A &O x3 Sling in tact, fingers mobile Date Time Temp Pulse Resp B/P (MAP) Pulse Ox O2 Delivery O2 Flow Rate FiO2 09/04/17 06:09 36.8 79 16 137/80 (99) 93 Room Air 09/03/17 23:45 36.8 78 16 126/60 (82) 95 Room Air 09/03/17 23:25 Room Air 09/03/17 16:05 Room Air 09/03/17 15:10 36.7 78 18 122/74 (90) 98 Room Air 09/03/17 11:06 36.8 70 16 115/72 (86) 94 Room Air 09/03/17 07:50 Room Air Laboratory Results 24 Hours: Test 09/04/17 06:48 Hematocrit 30.8 % Hemoglobin 10.2 g/dL Assessment & Plan Assessment: POD #2, Right Reversed TSA, biceps tenodesis, removal Hardware Plan: PT/ OT DVT proph- ASA D/C planning- Home As per medicine Inhouse Planning Pain Management: Morphine, PO Tylenol, Oxy IR DVT Prophylaxis: TEDs, SCDs, ASA Discharge Planning Discharge Planning: home Pain Management: PO Tylenol, Oxy IR DVT Prophylaxis: ASA
[2017-09-04] MEDS: PANTOprazole SOD 40 MG TAB PO SCH (07:50)
[2017-09-04] MEDS: CALCIUM 600MG + VIT D 400 IU TAB PO SCH (07:50)
[2017-09-04] MEDS: MULTIVITAMIN TAB PO SCH (07:50)
[2017-09-04] MEDS ORDERED: ACET-24 PO (07:51)
[2017-09-04] MEDS ORDERED: RXC5 PO (07:51)
[2017-09-04] MEDS: LISINOPRIL 40 MG TAB PO SCH (07:51)
[2017-09-04] MEDS: BuPROPion XL 300 MG TABCR PO SCH (07:51)
--- NOTE | 2017-09-04 07:52 | Discharge Instructions ---
Discharge Instructions Date of Service Sep 04, 2017. Admission Reason for Admission: Right Shoulder Rotator Cuff Arthropathy Discharge Discharge Diagnosis / Problem: Right Reversed TSA, biceps tenodesis Discharge Goals Goal(s): Improve function Activity Recommendations Activity Limitations: as noted below . Instructions / Follow-Up Instructions / Follow-Up ACTIVITY RECOMMENDATIONS: SELF CARE INSTRUCTIONS AFTER TOTAL SHOULDER ARTHROPLASTY REVERSE A. You may do daily exercises as taught in physical therapy while in hospital. No lifting with the operative arm. B. You are to wear your sling/immobilizer at all times EXCEPT when performing your daily exercises and for hygiene purposes. C. You may perform dry, daily dressing changes. Please keep your incision covered. You may shower 48 hours after surgery. Do not apply soap or any ointment/ lotions directly over incision. Do not soak incision in bath tub/swimming pool. D. You may use ice as needed to operative shoulder. SPECIAL CARE INSTRUCTIONS: VERY IMPORTANT TO READ AND REVIEW A. There are a few signs you need to watch for after you are home. Call [facility] at [phone] if you experience any of the followin. Increased severe shoulder pain. Some pain is expected especially when you exercise. 2. Increased swelling in you shoulder or arm; pain or swelling in either upper extremity. 3. Any fluid drainage from the incision. 4. Shortness of breath or chest pain. B. Please call [facility] at [phone] if you have any questions or concerns about your operation or recovery. C. Call your physician if: 1. Temperature is greater than 101 degrees (F). 2. Pain is not relieved by prescribed pain medications. 3. Increase drainage or redness from incision. 4. Unanswered questions or concerns. FOLLOW UP VISIT: Please call [facility] at [phone] to schedule a follow up appointment with Dr. Vanegas or his PA in 12-14 days from your surgery date. Current Hospital Diet Patient's current hospital diet: Regular Diet Discharge Diet Recommended Diet: Regular Diet Procedures Procedures Performed: Right Reversed Total Shoulder Arthroplasty, Removal of Hardware, Biceps Tendonesis Pending Studies Studies pending at discharge: no Laboratory Results Hemoglobin A1c Test 08/04/17 12:16 Range/Units Estimated Average Glucose 111 mg/dl Hemoglobin A1c 5.5 4.5-5.6 % Medical Emergencies . Who to Call and When: Medical Emergencies: If at any time you feel your situation is an emergency, please call 911 immediately. . Non-Emergent Contact Non-Emergency issues call your: Primary Care Provider . "Provider Documentation" section prepared by Vinicio Vaughn. . [place] Drug Monitoring Program Search Results: patient reviewed within database, no issues identified
[2017-09-04] MEDS: OXYCODONE HCL IR 5 MG TAB (IMMEDIATE RELEASE) PO PRN (09:22)
[2017-09-04 09:56] VITALS: BP 137/80; PULSE 79; TEMP 36.8; O2SAT 93
--- NOTE | 2017-09-15 19:23 | DISCHARGE SUMMARY ---
HISTORY OF PRESENT ILLNESS: This is a 71-year-old female patient of Dr. Vanegas who is complaining of chronic right rotator cuff tendinopathy. The patient did have a rotator cuff repair in January 2016. Since then, the repair has failed. She subsequently failed conservative treatment and wished to proceed with the reversed total shoulder arthroplasty on the right. 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 POSTOPERATIVE COURSE: The patient underwent a right reversed total shoulder arthroplasty with hardware removal and biceps tenodesis on 09/02/2017. She was followed closely with medical consultation, limited physical therapy, and pain control. The patient did well postoperatively and was discharged home on postoperative day #2. PHYSICAL EXAMINATION: On discharge, right shoulder incision was clean, dry, and intact. Kathy were intact. Skin edges were approximated well. There was no redness or drainage. Neurologically and neurovascularly, she is intact in her right upper extremity. DIAGNOSES: Status post right reversed total shoulder arthroplasty with hardware removal and biceps tenodesis. 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 PLAN: The patient was discharged home with home exercise program only. She will continue her preadmission medications, pain medications, and follow up as an outpatient as scheduled.
== END 2017-09-04 11:04 | disposition home or self-care (01) | DRG 483 ==
LOC: C.ACU 09:21 → C.3E 10:44 → ENRESERV 15:37
PROVIDERS: ADMIT Orthopaedic Surgery Sports Medicine; ATTEND Orthopaedic Surgery Sports Medicine
PROC: 0RPJ04Z Removal of Internal Fixation Device from Right Shoulder Joint, Open Approach (ICD-10-PCS; principal; 2017-09-02 12:00)
PROC: 0RRJ00Z Replacement of Right Shoulder Joint with Reverse Ball and Socket Synthetic Substitute, Open Approach (ICD-10-PCS; principal; 2017-09-02 12:00)
DX: M19.011 Primary osteoarthritis, right shoulder (principal); M75.81 Other shoulder lesions, right shoulder; I10 Essential (primary) hypertension; E78.5 Hyperlipidemia, unspecified; G62.9 Polyneuropathy, unspecified; I48.91 Unspecified atrial fibrillation; M06.9 Rheumatoid arthritis, unspecified; Z86.19 Personal history of other infectious and parasitic diseases; Z96.653 Presence of artificial knee joint, bilateral; Z79.82 Long term (current) use of aspirin; Z88.8 Allergy status to other drugs, medicaments and biological substances